=== PATIENT | female | born 1990 | race Two or more races ===

== ENCOUNTER 2020-10-02 10:37 | Day surgery (SDC) | payer OTHER | END 2020-10-02 20:45 | disposition home or self-care (01) | LOC: CIR.AMB 10:37 | PROVIDERS: ATTEND Obstetrics & Gynecology | DX: N95.1 Menopausal and female climacteric states (principal); Z20.822 Contact with and (suspected) exposure to COVID-19 ==

== ENCOUNTER 2023-08-20 13:05 | Inpatient (IN) | payer OTHER ==
[~2023-08-20] VITALS: Ht 157.5 cm; Wt 71.7 kg
[2023-09-14 09:00] LABS: HEMATOCRIT 34.1 % (36.0-45.00); HEMOGLOBIN 11.7 g/dL (12.0-15.00); MEAN CELL VOLUME 91.7 fL (80.00-100.00); MEAN CORPUSCULAR HEMOGLOBIN 31.4 pg (27.00-32.0); MEAN CORPUSCULAR HGB CONC 34.2 g/dl (32.0-36.0); PLATELET COUNT 203 K/uL (150-450); RED BLOOD COUNT 3.72 M/uL (4.00-6.00); RED CELL DISTRIBUTION WIDTH 14.1 % (11.5-14.5)
[2023-09-14 09:19] LABS: INR < 0.93; PARTIAL THROMBOPLASTIN TIME 25.3 SECONDS (22.0-34.0); PROTHROMBIN TIME 9.6 SECONDS (9.0-11.5)
[2023-09-14 10:27] LABS: ALBUMIN 2.8 gm/dL (3.4-5.0); BILIRUBIN TOTAL 0.24 mg/dL (0.3-1.2); CALCIUM 8.8 mg/dL (8.5-10.1); CREATININE SERUM 0.45 mg/dL (0.55-1.02); GFR 159.49; GLOBULINA 3.7 G/DL (2.4-3.5); POTASSIUM 3.57 mEq/L (3.5-5.1); TOTAL PROTEIN 6.5 gm/dL (6.4-8.2)
[2023-09-14] MEDS ORDERED: OXYTOCIN IV ONE (10:30)
[2023-09-14] MEDS ORDERED: ERYTHROMYCIN BASE 1 GM TUBE OP ONE (11:56)
[2023-09-14] MEDS ORDERED: LIDOCAINE HCL 1% 10ML VIAL ONE ×2 (11:57→17:15)
[2023-09-14] MEDS ORDERED: CHLORHEXIDINE GLUCONATE 120 ML BOTTLE TOP ONE (11:57)
[2023-09-14] MEDS ORDERED: OXYTOCIN 20 UNITS/1000ML RL PIGGYBAG IV ONE (11:57)
[2023-09-14] MEDS ORDERED: OXYTOCIN 500 ML IV SCH (12:00)
[2023-09-14] MEDS ORDERED: DOCUSATE SODIUM 100MG CAP PO SCH (17:44)
[2023-09-14] MEDS ORDERED: ERYTHROMYCIN BASE 1 GM TUBE OP SCH (17:45)
[2023-09-14] MEDS ORDERED: CHLORHEXIDINE GLUCONATE 120 ML BOTTLE TOP SCH (17:45)
[2023-09-14] MEDS ORDERED: OxyCODONE HCL/APAP UD (PERCOCET) PO PRN (17:45)
[2023-09-14] MEDS ORDERED: OXYTOCIN 1,000 ML IV SCH (17:45)
[2023-09-14] MEDS ORDERED: RIVAROXABAN 20 MG TABLET PO ONE (18:45)
[2023-09-14] MEDS ORDERED: LIDOCAINE HCL 1% 20ML VIAL IJ ONE ×2 (18:45)
[2023-09-14 19:04] LABS: ABG PH 7.344 (7.35-7.45)
[2023-09-14 19:05] LABS: ABG PO2 34.9 mmHg (80-100); ABG pCO2 36.5 mmHg (35-45); BASE EXCESS -5.5 mmol/l; BICARBONATE 19.4 mmol/l (23-25); SaO2 61.9 %; Tco2 20.5 mmol/l; o2 21 %
[2023-09-14] MEDS ORDERED: ACETAMINOPHEN WITH CODEINE 1 UDTAB TABLET PO PRN (21:45)
[2023-09-15] MEDS ORDERED: ACETAMINOPHEN 500 MG GEL..CAP PO SCH (06:00)
[2023-09-15] MEDS ORDERED: PNV,CALCIUM 72/IRON/FOLIC ACID 1 TAB TABLET PO SCH (09:00)
[2023-09-16 09:12] LABS: HEMATOCRIT 31.6 % (36.0-45.00); HEMOGLOBIN 10.7 g/dL (12.0-15.00); MEAN CELL VOLUME 92.9 fL (80.00-100.00); MEAN CORPUSCULAR HEMOGLOBIN 31.4 pg (27.00-32.0); MEAN CORPUSCULAR HGB CONC 33.8 g/dl (32.0-36.0); PLATELET COUNT 182 K/uL (150-450); RED CELL DISTRIBUTION WIDTH 14.2 % (11.5-14.5)
== END 2023-09-16 13:22 | disposition home or self-care (01) | DRG 807 ==
LOC: OB/GYN 09-08 14:15 → LDR 09-14 07:22 → OB/GYN 09-14 19:50
PROVIDERS: Obstetrics & Gynecology Maternal & Fetal Medicine; ADMIT Obstetrics & Gynecology; ATTEND Obstetrics & Gynecology
PROC: 10E0XZZ Delivery of Products of Conception, External Approach (ICD-10-PCS; principal; 2023-09-14)
PROC: 0KQM0ZZ Repair Perineum Muscle, Open Approach (ICD-10-PCS; 2023-09-14)
PROC: 4A1HXCZ Monitoring of Products of Conception, Cardiac Rate, External Approach (ICD-10-PCS; 2023-09-14)
PROC: 3E033VJ Introduction of Other Hormone into Peripheral Vein, Percutaneous Approach (ICD-10-PCS; 2023-09-14)
DX: O70.0 First degree perineal laceration during delivery (principal); Z37.0 Single live birth; Z3A.40 40 weeks gestation of pregnancy; Z20.822 Contact with and (suspected) exposure to COVID-19

== ENCOUNTER 2023-09-06 11:56 | Outpatient (CLI) | payer OTHER | END 2023-09-06 13:02 | disposition home or self-care (01) | LOC: NST 11:56 | PROVIDERS: ATTEND Obstetrics & Gynecology Maternal & Fetal Medicine | DX: Z34.83 Encounter for supervision of other normal pregnancy, third trimester (principal) ==

== ENCOUNTER 2023-09-13 14:41 | Outpatient (CLI) | payer OTHER | END 2023-09-13 16:27 | disposition home or self-care (01) | LOC: NST 14:41 | PROVIDERS: ATTEND Obstetrics & Gynecology Maternal & Fetal Medicine | DX: Z34.83 Encounter for supervision of other normal pregnancy, third trimester (principal) ==

== ENCOUNTER 2025-02-16 14:12 | Outpatient (CLI) | payer OTHER | END 2025-02-16 15:07 | disposition home or self-care (01) | LOC: NST 14:12 | PROVIDERS: ATTEND Obstetrics & Gynecology Gynecology | DX: Z34.83 Encounter for supervision of other normal pregnancy, third trimester (principal) ==

== ENCOUNTER 2025-02-18 07:04 | Inpatient (IN) | payer OTHER ==
[~2025-02-18] VITALS: Ht 154.9 cm; Wt 2.3 kg
[2025-02-18] MEDS ORDERED: MORPHINE SULFATE 4 MG/ML VIAL IV PRN (08:15)
[2025-02-18] MEDS ORDERED: RINGERS SOLUTION,LACTATED 1,000 ML IV SCH ×2 (08:15→18:30)
[2025-02-18 08:36] VITALS: BP 126/66
[2025-02-18 09:11] LABS: BASO % 0.4 % (0.1-1.2); EOS # 0.07 (0.04-0.54); EOS % 0.7 % (0.7-7.0); LYMPH # 1.96 (1.18-3.74); LYMPH % 20.0 % (19.3-53.1); MEAN PLATELET VOLUME 9.30 fl (9.4-12.4); MONO # 0.61 (0.24-0.82); MONO % 6.2 % (4.7-12.5); NEUT # 7.01 (1.56-6.13); NEUT % 71.6 % (34.0-71.1); RED CELL DISTRIBUTION WIDTH 14.0 % (11.6-14.4)
[2025-02-18 09:14] LABS: URINE APPEARANCE Clear; URINE BILIRRUBIN Negative (NEGATIVE); URINE BLOOD Negative; URINE COLOR Yellow; URINE GLUCOSE Negative (NEGATIVE); URINE KETONE Negative (NEGATIVE); URINE LEUKOCYTE Trace; URINE NITRATE Negative; URINE PROTEIN Negative (NEGATIVE); URINE UROBILINOGEN 0.2 E.U./dl
[2025-02-18 09:17] LABS: URINE BACTERIA 200.1 uL (0.0-1933); URINE EPITHELIAL CELLS 1.8 uL (0.0-38.8); URINE RBC 3.5 uL (0.0-20.8); URINE WBC 4.1 uL (0.0-23.2)
[2025-02-18] MEDS ORDERED: PRENATA CHEWAB1 EACH PO (09:22)
[2025-02-18 09:23] LABS: URINE CAST 0.00 uL (0.0-1.40)
[2025-02-18 09:31] LABS: INR < 0.93
[2025-02-18 09:35] LABS: ALT/SGPT 23.0 U/L (12-78); AST/SGOT 15.0 U/L (15-37); BILIRUBIN TOTAL 0.21 mg/dL (0.3-1.2); BUN CREA RATIO 30.0 (7.0-25.0); CREATININE SERUM 0.46 mg/dL (0.55-1.02); GFR 154.58; GLOBULINA 3.9 G/DL (2.4-3.5); GLUCOSE FASTING 91.0 mg/dL (65-100); OSMOLALITY SERUM 278.0 MOSM/KG (275-295)
[2025-02-18] MEDS ORDERED: MISOPROSTOL 25 MCG TABLET VAG ONE (10:45)
[2025-02-18 11:42] VITALS: BP 112/58
[2025-02-18 15:14] VITALS: BP 119/71
[2025-02-18] MEDS ORDERED: TERBUTALINE SULFATE 1 MG/ML AMPUL SUBCUTANEO ONE (17:45)
[2025-02-18] MEDS ORDERED: OXYTOCIN 10 UNITS/ML VIAL ONE (18:07)
[2025-02-18] MEDS ORDERED: ERYTHROMYCIN BASE OPHT 1GM EACH TUBE OP ONE (18:08)
[2025-02-18] MEDS ORDERED: MORPHINE SULFATE 4 MG/ML CARTRIDGE IV PRN (18:30)
[2025-02-18] MEDS ORDERED: OXYTOCIN 1,000 ML IV ONE (18:30)
[2025-02-18 22:30] VITALS: BP 95/62
[2025-02-19] VITALS: BP 103/66
[2025-02-19] MEDS ORDERED: ACETAMINOPHEN 500 MG GEL..CAP PO SCH
[2025-02-19] MEDS ORDERED: ONDANSETRON HCL 2 MG/ML VIAL IV SCH
[2025-02-19] MEDS ORDERED: SIMETHICONE 125 MG CAPSULE PO SCH (01:00)
[2025-02-19] MEDS ORDERED: GABAPENTIN 300 MG CAPSULE PO SCH (01:00)
[2025-02-19 06:18] LABS: BASO % 0.4 % (0.1-1.2); EOS # 0.07 (0.04-0.54); EOS % 0.6 % (0.7-7.0); LYMPH # 1.93 (1.18-3.74); LYMPH % 16.9 % (19.3-53.1); MEAN PLATELET VOLUME 9.60 fl (9.4-12.4); MONO # 0.62 (0.24-0.82); MONO % 5.4 % (4.7-12.5); NEUT # 8.68 (1.56-6.13); NEUT % 76.2 % (34.0-71.1); RED CELL DISTRIBUTION WIDTH 14.0 % (11.6-14.4)
[2025-02-19] MEDS ORDERED: OxyCODONE HCL 5 MG TABLET (ROXICODONE) PO PRN (08:00)
[2025-02-19 08:36] VITALS: BP 107/69
[2025-02-19] MEDS ORDERED: DOCUSATE SODIUM 100MG CAP PO SCH (09:00)
[2025-02-19 14:18] VITALS: BP 95/60
[2025-02-19 15:51] VITALS: BP 90/55
[2025-02-19] MEDS ORDERED: CYCLOBENZAPRINE HCL 5 MG TABLET PO SCH (20:35)
[2025-02-20] VITALS: BP 95/60
[2025-02-20 10:34] VITALS: BP 97/59; O2SAT 98
== END 2025-02-20 13:24 | disposition home or self-care (01) | DRG 788 ==
LOC: LDR 07:04 → OB/GYN 07:04 → LDR 07:46 → OB/GYN 20:35
PROVIDERS: Obstetrics & Gynecology; ADMIT Obstetrics & Gynecology Gynecology; ATTEND Obstetrics & Gynecology Gynecology
PROC: 4A1HXCZ Monitoring of Products of Conception, Cardiac Rate, External Approach (ICD-10-PCS; 2025-02-18)
PROC: 10D00Z1 Extraction of Products of Conception, Low, Open Approach (ICD-10-PCS; principal; 2025-02-18 18:00)
DX: O36.5930 Maternal care for other known or suspected poor fetal growth, third trimester, not applicable or unspecified (principal); O36.8130 Decreased fetal movements, third trimester, not applicable or unspecified; Z3A.38 38 weeks gestation of pregnancy; Z37.0 Single live birth